=== PATIENT | female | born 1965 | race Caucasian/White ===

== ENCOUNTER 2017-03-12 10:52 | Emergency (ER) | payer BC, OTHER ==
[~2017-03-12] VITALS: Ht 170.2 cm; Wt 75.9 kg
[~2017-03-12 10:52] MED LIST: CLON1 PO; DEPA500T3 PO; NIAC500T4 PO; PROT40TA PO; REDCAP2 PO; SODI1TAB PO; SYNT25TA PO; ULTR50TA5 PO; ZOLO100T PO
[2017-03-12 11:02] VITALS: BP 146/85; PULSE 83; RESP 16; TEMP 98.1; O2SAT 97
[2017-03-12] MEDS ORDERED: VORT1TAB2 PO (11:28)
[2017-03-12] MEDS ORDERED: REST30CA PO (11:28)
[2017-03-12] MEDS ORDERED: TRAM50TA PO (11:34)
--- NOTE | 2017-03-12 11:37 | PD ---
HPI Chief Complaint: Headache Time Seen by Provider: 11:16 Travel History International Travel<30 days: No Contact w/Intl Traveler<30days: No Traveled to known affect area: No History of Present Illness HPI The patient was seen and examined in the presence of the nurse. This patient complains of headaches. She has daily chronic headaches for 5-6 months. Her doctor is tried some medications that aren't helping. She has an outpatient MRI scheduled for 2 days from now no head injury or fever or acute thunderclap onset. She takes no blood thinners. Symptoms severity is moderate PFSH Past Medical History Anemia: Yes Blood Disorders: No Bipolar Disorder: Yes Anxiety: Yes Depression: Yes Cancer: No Cardiovascular Problems: Yes High Cholesterol: Yes Diminished Hearing: Yes Endocrine: No GERD: Yes Headaches: Yes Hiatal Hernia: Yes Immune Disorder: No Insomnia: Yes Neurologic: Yes Psychiatric: Yes Reproductive: No Immunizations Current: Yes Seizures: Yes Ulcer: Yes Influenza Vaccination: Yes ?: Not Menopausal: Yes : 5 Para: 4 Miscarriage: 1 Past Surgical History AICD: No Appendectomy: Yes Arteriovenous Shunt: No Section: Yes (X3) Insulin Pump: No Joint Replacement: No Pacemaker: No Other Surgery: Yes (, APPENDECTOMY) Social History Alcohol Use: No Tobacco Use: Yes (1 PPD) Substance Use: No Allergies-Medications (Allergen,Severity, Reaction): Coded Allergies: lamotrigine (Unverified Allergy, Severe, 03/12/17) CONFIRM? lithium (Unverified Allergy, Severe, 03/12/17) CONFIRM? penicillin G (Unverified Allergy, Severe, 03/12/17) carbamazepine (Unverified Allergy, Mild, 03/12/17) amlodipine (Unverified Adverse Reaction, Severe, 03/12/17) ELEVATED CKP LEVEL atorvastatin (Unverified Adverse Reaction, Severe, 03/12/17) ELEVATED CKP LEVEL pravastatin (Unverified Adverse Reaction, Severe, 03/12/17) ELEVATED CKP LEVEL simvastatin (Unverified Adverse Reaction, Severe, 03/12/17) ELEVATED CKP LEVEL Reported Meds & Prescriptions Reported Meds & Active Scripts Active Depakote ER (Divalproex Sodium) 500 Mg Sybil 500 Mg PO 1 AM, 2 AT BEDTIME Klonopin (Clonazepam) 1 Mg Tab 1 Mg PO TID Reported Restoril (Temazepam) 30 Mg Cap 30 Mg PO HS PRN Trintellix (Vortioxetine) 10 Mg Tab 10 Mg PO DAILY Synthroid (Levothyroxine Sodium) 25 Mcg Tab 25 Mcg PO DAILY Red Yeast Rice (Red Yeast Rice Extract) 600 Mg Cap 600 Mg PO BID Protonix (Pantoprazole Sodium) 40 Mg Tab 40 Mg PO DAILY Sodium Chloride 1 Gm Tab 1 Gm PO DAILY Review of Systems General / Constitutional: No: Fever HENT: Positive: Headaches Cardiovascular: No: Chest Pain or Discomfort Respiratory: No: Cough Physical Exam Narrative GENERAL: Well-nourished, well-developed patient in no apparent distress. SKIN: Focused skin assessment reveals no rash and nodules. Skin is Warm and dry. HEAD: Atraumatic. Normocephalic. EYES: Pupils equal and round. No scleral icterus. No injection or drainage. ENT: No nasal bleeding or discharge. Mucous membranes pink and moist. NECK: Trachea midline. No JVD. CARDIOVASCULAR: Regular rate and rhythm. No murmur appreciated. RESPIRATORY: No accessory muscle use. Clear to auscultation. Breath sounds equal bilaterally. GASTROINTESTINAL: Abdomen soft, non-tender, nondistended. Hepatic and splenic margins not palpable. MUSCULOSKELETAL: No obvious deformities. No clubbing. No cyanosis. No edema. NEUROLOGICAL: Awake and alert. No obvious cranial nerve deficits. Motor grossly within normal limits. Normal speech. PSYCHIATRIC: Appropriate mood and affect; insight and judgment normal. Data Data Last Documented VS Vital Signs Date Time Temp Pulse Resp B/P (MAP) Pulse Ox O2 Delivery O2 Flow Rate FiO2 03/12/17 11:02 98.1 83 16 146/85 (105) 97 Orders Orders Ondansetron Inj (Zofran Inj) (03/12/17 11:45) Morphine Inj (Morphine Inj) (03/12/17 11:45) [facility] Medical Decision Making Medical Screen Exam Complete: Yes Emergency Medical Condition: Yes Medical Record Reviewed: Yes Differential Diagnosis Differential diagnosis includes migraine, tension headache, cluster headache, meningitis. Narrative Course I have reviewed the patient's electronic medical record. Patient's vital signs and exam are normal. She is neurologically intact. This is a chronic headache over 5-6 months I'm not recommending emergent imaging here now she has an outpatient MRI set up for 2 days. I gave her morphine and Zofran injection and prescription for 10 tramadol Diagnosis Primary Impression: Headache Qualified Codes: R51 - Headache Additional Instructions: The patient was advised to follow up with their physician and return if they worsen. The patient was warned about potential sedation for the medications they will receive on prescription. Med/Other Pt SpecificInfo: Prescription(s) given Scripts Tramadol (Tramadol) 50 Mg Tab 50 MG PO Q6H Y for PAIN, #10 TAB 0 Refills Prov: Scott Lao MD 03/12/17 Disposition: DISCHARGE HOME Condition: Stable Scott Lao MD Mar 12, 2017 11:37
[2017-03-12] MEDS ORDERED: MORPHINE SULFATE 4 MG/ML INJ IM ONE (11:45)
[2017-03-12] MEDS ORDERED: ONDANSETRON HCL 4 MG/2 ML VIAL IM ONE (11:45)
== END 2017-03-12 12:32 | disposition home or self-care (01) ==
LOC: PHED 10:52
DX: R51 Headache (principal); F17.210 Nicotine dependence, cigarettes, uncomplicated; D64.9 Anemia, unspecified; E78.00 Pure hypercholesterolemia, unspecified; H91.90 Unspecified hearing loss, unspecified ear; K21.9 Gastro-esophageal reflux disease without esophagitis; K44.9 Diaphragmatic hernia without obstruction or gangrene; R56.9 Unspecified convulsions; Z88.0 Allergy status to penicillin
CPT/HCPCS: 96372; 96374; 99284; J2270; J2405